=== PATIENT | female | born 1985 | race African-American/Black ===

== ENCOUNTER 2018-01-01 14:02 | Emergency (ER) | payer MEDICAID ==
[~2018-01-01] VITALS: Ht 167.6 cm; Wt 76.0 kg
[~2018-01-01 14:02] MED LIST: NO MEDS
[2018-01-01] MEDS ORDERED: IBUPROFEN 600MG TABLET PO STA (17:31)
[2018-01-01 18:08] LABS: CLARITY URINE CLEAR (CLEAR); COLOR URINE YELLOW (YELLOW); KETONES URINE NEGATIVE (NEGATIVE); LEUKOCYTE ESTERASE URINE 1+ (NEGATIVE); NITRITE URINE NEGATIVE (NEGATIVE); OCCULT BLOOD URINE NEGATIVE (NEGATIVE); PROTEIN URINE NEGATIVE (NEGATIVE); SPECIFIC GRAVITY URINE 1.016 (1.005-1.030)
[2018-01-01 20:34] LABS: BASOPHILS % 0.7 % (0.0-2.0); EOSINOPHILS % 2.5 % (0.0-5.0); HEMATOCRIT. 36.2 % (36.0-48.0); HEMOGLOBIN. 11.7 g/dL (12.0-16.0); LYMPHOCYTES % 24.2 % (20.0-50.0); MEAN CORPUSCULAR HEMOGLOBIN 23.6 pg (28.0-32.0); MEAN CORPUSCULAR VOLUME 73.4 fL (81.0-99.0); MEAN PLATELET VOLUME 8.9 fl (7.4-10.4); MONOCYTES % 5.4 % (2.0-8.0); NEUTROPHILS % 67.2 % (40.0-76.0); PLATELET 232 x1000/uL (130-400); RED BLOOD CELL COUNT 4.93 mill/uL (4.2-5.4); RED CELL DISTRIBUTION WIDTH 17.5 % (11.6-14.6)
[2018-01-01 20:37] LABS: CHLORIDE 102 mEq/L (98-107)
[2018-01-01 20:47] LABS: B-HCG QUANTITATIVE < 1 mIU/mL (<3)
[2018-01-01 21:00] VITALS: BP 128/64
== END 2018-01-01 21:45 | disposition home or self-care (01) ==
LOC: ER 14:02
DX: N93.8 Other specified abnormal uterine and vaginal bleeding (principal); N30.00 Acute cystitis without hematuria; F17.290 Nicotine dependence, other tobacco product, uncomplicated
CPT/HCPCS: 36415; 80048; 81003; 81025; 84702; 85025; 99284

== ENCOUNTER 2019-04-09 13:25 | Emergency (ER) | payer MEDICAID ==
[~2019-04-09] VITALS: Ht 167.6 cm; Wt 63.0 kg
[2019-04-09] MEDS ORDERED: IBUPROFEN 800MG TABLET PO ONE (14:30)
[2019-04-09] MEDS ORDERED: ACETAMINOPHEN 500MG TABLET PO ONE (14:30)
[2019-04-09 14:34] VITALS: BP 120/84
== END 2019-04-09 16:29 | disposition home or self-care (01) ==
LOC: ER 13:32
DX: S93.602A Unspecified sprain of left foot, initial encounter (principal); F17.200 Nicotine dependence, unspecified, uncomplicated; W20.8XXA Other cause of strike by thrown, projected or falling object, initial encounter; Y93.89 Activity, other specified; Y92.89 Other specified places as the place of occurrence of the external cause; Y99.8 Other external cause status
CPT/HCPCS: 73630; 81025; 99283; Z7610